=== PATIENT | male | born 1955 | race Caucasian/White ===

== ENCOUNTER 2024-11-22 08:25 | Outpatient (RCR) | payer MEDICARE, BC, SELFPAY ==
--- NOTE | 2024-11-22 09:00 | XR_ITS ---
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
== END 2024-11-27 23:59 | disposition home or self-care (01) ==
LOC: SNUC 08:25
PROVIDERS: PCP Family Medicine; Referring Provider Internal Medicine; Visit Provider Internal Medicine
DX: E21.3 Hyperparathyroidism, unspecified (principal); D36.7 Benign neoplasm of other specified sites
CPT/HCPCS: 78070; A9500

== ENCOUNTER → 2025-01-17 | Outpatient (CLI) | payer MEDICARE, BC, SELFPAY ==
--- NOTE | 2025-01-17 14:00 | XR_ITS ---
Examination: Ultrasound soft tissue neck TECHNIQUE: Grayscale sonographic images soft tissue neck Date and time: January 17, 2025 1409 hours INDICATIONS: Nuclear medicine parathyroid scan November 22, 2024 parathyroid adenoma below the left lobe of the thyroid FINDINGS: No parathyroid nodule noted IMPRESSION: No parathyroid nodule noted
== END | disposition home or self-care (01) ==
LOC: CDIM 13:20
PROVIDERS: PCP Family Medicine; Referring Provider Surgery; Visit Provider Surgery
DX: E21.0 Primary hyperparathyroidism (principal)
CPT/HCPCS: 76536